=== PATIENT | female | born 1970 | race Hispanic/Latino ===

== ENCOUNTER 2019-01-06 15:16 | Outpatient (CLI) | payer OTHER ==
--- NOTE | 2019-01-06 15:47 | ULT ---
THYROID ULTRASOUND: HISTORY: Hypothyroidism. COMPARISON: None. TECHNIQUE: Sagittal and transverse imaging of the thyroid gland was performed. FINDINGS: The thyroid isthmus measures 0.4 cm. The right thyroid lobe measures 3.8 x 1.3 x 1.5 cm. The left thyroid lobe measures 1.2 x 1.2 x 4.2 c m. Hypoechoic focus in the left thyroid lobe measuring 0.3 x 0.2 x 0.3 cm. This has a TIRADS calculated score of TR3. Followup imaging is not recommended given that this lesion is less than 1.5 cm in siz e. IMPRESSION: Right thyroid lobe lesion as above. POS: [facility] [place]
== END 2019-01-06 15:17 | disposition home or self-care (01) ==
LOC: SCSULT 15:16
PROVIDERS: ATTEND Family Medicine
DX: E03.9 Hypothyroidism, unspecified (principal); E07.9 Disorder of thyroid, unspecified
CPT/HCPCS: 76536